=== PATIENT | male | born 1975 | race Caucasian/White ===

== ENCOUNTER 2018-08-04 04:00 | Emergency (ER) | payer OTHER ==
[~2018-08-04] VITALS: Ht 180.3 cm; Wt 95.3 kg
[2018-08-04 04:22] LABS: ABSOLUTE BASOPHILS 0.1 thou/uL (0.0-0.2); ABSOLUTE EOSINOPHILS 0.4 thou/uL (0.0-0.7); ABSOLUTE LYMPHOCYTES 1.9 thou/uL (0.8-5.3); ABSOLUTE MONOCYTES 0.8 thou/uL (0.0-1.2); ABSOLUTE NEUTROPHILS 4.7 thou/uL (1.6-8.1); BASOPHILS 1.1 %; EOSINOPHILS 4.7 %; HEMATOCRIT 44.6 % (42.0-52.0); HEMOGLOBIN 15.4 gm/dL (14.0-18.0); LYMPHOCYTES 24.6 %; MCH 31.5 pg (26.0-34.0); MCHC 34.4 g/dL (28.0-37.0); MCV 91.5 fL (80.0-100.0); MONOCYTES 10.5 %; MPV 7.5 fl. (7.2-11.1); NUCLEATED RBCS 0 /100WBC; PLATELET COUNT* 323 thou/uL (150-400); POLYS 59.1 %; RBC 4.88 mil/uL (4.50-6.00); RDW-CV 13.2 % (10.5-14.5); WBC 7.9 thou/uL (4.0-11.0)
[2018-08-04 04:50] LABS: ALBUMIN 3.9 g/dL (3.4-5.0); ALKALINE PHOSPHATASE 71 U/L (46-116); ANION GAP 8 mmol/L (7-16); BUN 14 mg/dL (7-18); CALCIUM 9.2 mg/dL (8.5-10.1); CHLORIDE 105 mmol/L (98-107); CO2 29 mmol/L (21-32); CREATININE 1.1 mg/dL (0.6-1.3); GLUCOSE 144 mg/dL (70-99); POTASSIUM 3.7 mmol/L (3.5-5.1); SGOT 14 U/L (15-37); SGPT 23 U/L (30-65); SODIUM 142 mmol/L (136-145); TOTAL BILIRUBIN 0.3 mg/dL (<0.1-1.0); TOTAL PROTEIN 7.2 g/dL (6.4-8.2); TROPONIN-I LEVEL <0.06 ng/mL (<0.06)
[2018-08-04] MEDS ORDERED: PRILOSEC OTC20 MG PO (05:54)
[2018-08-04] MEDS ORDERED: CARAFATE 1 GM TA1 GM PO (05:54)
[2018-08-04 06:18] VITALS: BP 113/86
--- NOTE | 2018-08-05 11:07 | EKG ---
[place] [address] ELECTROCARDIOGRAM REPORT Name: DOMINIC GUERIN Room: [facility]#: [id number] Admission: 08/04/18 Attend Phys: Discharge: 08/04/18 Date of : 73 Report #: [id number] THIS REPORT FOR: //name// [facility] ED Test Date: 2018-08-04 Test Time: 04:02:50 Pat Name: DOMINIC GUERIN Department: Room: Gender: [employer]ent Acquisition Consultant: Essie BOYD : 1975 Requested By: Dee Dee Figueredo Order Number: [id number] MD: Jj Hamilton Measurements Intervals [place] Rate: 43 P: 33 ID: [id number] QRS: 39 QRSD: 87 T: 52 QT: 448 QTc: 379 Interpretive Statements Sinus bradycardia RSR' in V1 or V2, right VCD No previous ECG available for comparison Electronically Signed On 08-05-2018 11:07:27 CDT by Jj Hamilton [email or web address] <ELECTRONICALLY SIGNED> By: Jj Hamilton MD, [facility] 08/05/18 [id number] Jj Hamilton MD, FACC /EPI
== END 2018-08-04 06:18 | disposition home or self-care (01) ==
LOC: M.ERS 04:00
PROVIDERS: Emergency Medicine
DX: K29.70 Gastritis, unspecified, without bleeding (principal); F17.210 Nicotine dependence, cigarettes, uncomplicated